=== PATIENT | female | born 1995 | race Hispanic/Latino ===

== ENCOUNTER 2017-07-28 20:16 | Emergency (ER) | payer BC, SELFPAY ==
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
[2017-07-28] MEDS ORDERED: Ketorolac Tromethamine 30 MG/ML VIAL ONE (22:11)
== END 2017-07-28 22:38 | disposition home or self-care (01) ==
LOC: ERS 20:16
DX: S40.011A Contusion of right shoulder, initial encounter (principal); V29.9XXA Motorcycle rider (driver) (passenger) injured in unspecified traffic accident, initial encounter
CPT/HCPCS: 96372; J1885

== ENCOUNTER 2018-06-17 10:23 | Emergency (ER) | payer BC ==
[2018-06-17 10:54] LABS: #Eosinphils 0.1 thou/uL (0.0-0.7); #Lymphocytes 1.5 thou/uL (1.20-3.40); #Monocytes 0.5 thou/uL (0.11-0.59); %Basophils 0.5 % (0.0-1.0); %Eosinophils 1.4 % (0.0-10.0); %Lymphocytes 20.8 % (21.0-51.0); %Monocytes 6.7 % (0.0-10.0); %Neutrophils 70.6 % (42.0-75.0); Hemoglobin 12.5 g/dL (12.0-16.0); Mean Corpuscular Hemoglobin 27.6 pg (27.0-31.0); Mean Corpuscular Volume 86.3 fL (78.0-98.0); Mean Platelet Volume 7.1 fL (7.4-10.4); Platelet Count 309 thou/uL (130-400); RBC Distribution Width 14.7 % (11.5-14.5); Red Blood Cell (RBC) Count 4.55 mill/uL (4.20-5.40); White Blood Cell (WBC) Count 7.1 thou/uL (4.8-10.8)
[2018-06-17 11:00] LABS: Bilirubin Negative (Negative); Blood, Urine Negative (Negative); Clarity TURBID (Clear); Glucose, Urine (Dipstick) Negative (Negative); Leukocyte Negative (Negative); Nitrite Negative (Negative); Protein, Urine (Dipstick) Negative (Neg-Trace); Specific Gravity, Urine 1.024 (1.002-1.036); Urobilinogen 0.2 mg/dL (0.2-1.0)
== END 2018-06-17 11:24 | disposition home or self-care (01) ==
LOC: ERS 10:23
DX: O20.9 Hemorrhage in early pregnancy, unspecified (principal); Z3A.00 Weeks of gestation of pregnancy not specified
CPT/HCPCS: 36415; 81003; 84702; 85025; 86900; 86901

== ENCOUNTER 2019-01-09 07:52 | Day surgery (SDC) | payer OTHER ==
[2019-01-09 08:36] VITALS: BMI 28.8
[2019-01-09] MEDS ORDERED: Ondansetron ODT 4 MG TAB PO ONE (08:53)
--- NOTE | 2019-01-09 09:21 | PDOC.LDHP ---
Labor and Delivery H&P Chief complaint: other (NVD) HPI: 23 yo @ 30.1 weeks presents for nausea vomiting and dirrhea that started at 2am. Pt reports she has had one episode vomiting and 8-9 soft BM. No hematemesis, no hematochezia, no dark tarry stool. No change in diet and no abdominal pain. Pos movment, no ctx, no discahrge, no bleeding, no LOF. Current gestational age (weeks): 30 (30+1) Due date: 03/19/19 Dating criteria: last menstrual period Grav: 3 Para: 1 (1011) Current complications: none Current medications: pre- vitamins Previous surgical history: none Allergies/Adverse Reactions: Allergies Allergy/AdvReac Type Severity Reaction Status Date / Time coconut Allergy Hives Verified 01/09/19 08:28 Social history: none - Physical Exam Vital signs reviewed and normal: yes General: NAD Heart: RRR Lungs: CTAB Abdomen: other (Negative Mcburneys, negative rovsing, negative Murpheys) Extremeties: no edema (140s baseline with positive accels, no contractions) FHT: category 1 - OB Labs Blood type: unknown RH: unknown Antibody Screen: unknown HIV: unknown RPR: unknown HEPSAg: unknown 1 hour GCT: unknown GBS: unknown - Plan -: 1) Gastroenteritis, likely viral - rx zofran X1 - pt currently tolerating PO w/o clinical s/s of dehydration - will DC to home with instructions to f/u in clinic and take zofran prn for NV - return precautions including high fever, severe abdominal pain discussed, pt agreeable Addendum - Attending - Attending Attestation Date/Time: 01/09/19 1608 I personally evaluated the patient and discussed the management with Dr. Osborne. I agree with the History, Examination, Assessment and Plan documented above with any addition or exceptions noted below. 23 yo @ 30.1 weeks here with onset of diarrhea and colicky abd pain this a.m. with one episode of vomiting. Currently tolerating oral water. FHT' s reassuring, no ctxn's. If Zofran and oral challenge sufficiently controls nausea to allow oral hydration, will release home with instructions.
== END 2019-01-09 09:53 | disposition home or self-care (01) ==
LOC: L&D/OP 07:52
PROVIDERS: ATTEND Obstetrics & Gynecology
DX: O99.613 Diseases of the digestive system complicating pregnancy, third trimester (principal); K52.9 Noninfective gastroenteritis and colitis, unspecified; O21.2 Late vomiting of pregnancy; Z3A.30 30 weeks gestation of pregnancy; Z91.018 Allergy to other foods
CPT/HCPCS: 99282; Q0162

== ENCOUNTER 2019-02-08 17:33 | Day surgery (SDC) | payer OTHER ==
[2019-02-08 18:12] VITALS: BMI 32.0
[2019-02-08 18:13] VITALS: BP 134/75; TEMP 100.2
[2019-02-08 19:25] LABS: Bacteria/HPF None Seen HPF (None Seen); Hyaline Casts/LPF 0-3 HYALINE CAST LPF (0-3 Hyaline); Pathc Cast-AUWi Flag 0.67 (0-2.49); RBC/HPF 0-3 HPF (0-3); Squamous Epithelial 0-3 HPF (0-3); WBC/HPF 0-3 HPF (0-3)
--- NOTE | 2019-02-08 19:34 | PDOC.FPROB ---
FMR OB H&P: HPI - History of Present Illness Chief Complaint: left sided pain Indentification: 23 History of Present Illness: 23 at 34.0 weeks here for left sided pain. Started this afternoon after cleaning toilets. Worse with breathing, but no chest pain or recent inactivity or surgery. Endorses FM. Denies LOF, VB, VD, CTX. Denies problems during . Primary Care Physician: Dr. Mason FMR OB H&P: Current - Care : 4 Para: 0121 Gestational age: 34.0 - OB Labs Blood type: unknown RH: unknown Antibody Screen: unknown HIV: unknown RPR: unknown HepBsAg: unknown Quad screen: unknown Urine drug screen: not done Gonorrhea: unknown Chlamydia: unknown GBS: unknown FMR OB H&P: Medications - Current Home Medications: Medication Instructions Recorded Confirmed Type Vitamin 1 tab PO DAILY #0 tab 08/05/13 02/08/19 Rx Allergies/Adverse Reactions: Allergies Allergy/AdvReac Type Severity Reaction Status Date / Time coconut Allergy Hives Verified 01/09/19 08:28 FMR OB H&P: ROS - Review of Systems Musculoskeletal: reports: pain (otherwise ROS negative), tenderness FMR OB H&P: Vital Signs - Maternal Vital signs: Vital Signs - First Documented Temp Pulse Resp BP 100.2 F H 86 18 134/75 02/08/19 18:09 02/08/19 18:09 02/08/19 18:09 02/08/19 18:09 FMR OB H&P: Physical Exam - Physical Exam General: NAD, awake, alert and oriented HEENT: normocephalic and atraumatic, PERRLA, EOMI, MMM Neck: supple, FROM Chest: non-tender to palpation, no lesions Heart: RRR, normal S1/S2, no murmurs/rubs/gallops General: CTAB, no respiratory distress Abdomen: soft, gravid Deviation from normal: mild TTP along left intercostal rib, negative mcburney/ rovsing Skin: capillary refill <2 seconds Lymphatic: no unusual bruising or bleeding, no purpura, no petechia FMR OB H&P: Results - Labs Lab results: Laboratory Results - last 24 hr 02/08/19 19:10 Urine RBC 0-3 Urine WBC 0-3 Ur Squamous Epith Cells 0-3 Urine Bacteria None Seen Hyaline Casts 0-3 HYALINE CAST FMR OB H&P: A/P - Problem List (1) Supervision of normal intrauterine in multigravida Status: Acute Code(s): Z34.80 - ENCOUNTER FOR SUPRVSN OF NORMAL , UNSP TRIMESTER Discussion: Date/Time: 02/08/19 193 23 yo at 34.0 here for left sided abd pain Left sided abd pain in sIUP, -Likely MSK in etiology -FHT, reactive reassuring -No CTX -No signs of labor at this time -UA with mod LE, no urinary sxs, likely dehydration -Will send urine cx, f/u on results Discussed with patient heating pads, tylenol if worsening Discussed labor precautions This H&P was discussed with Dr. Perez/ who agree with the above documentation and plan. Addendum - Attending - Attending Attestation Date/Time: 02/08/192136 I personally evaluated the patient and discussed the management with Dr. Matute I agree with the History, Examination, Assessment and Plan documented above with any addition or exceptions noted below- 23 at 34.0 weeks here for left sided pain. States that the pain started 2-3 hours ago and is intermittent. Initially was occurring every 5 minutes but now is every 10-15 minutes. States that she had a similar pain when she was dehydrated so she drank 2 bottles of water but pain continued so presented for evaluation. Denies LOF, VB. (+) FM. Denies any dysuria, fever, back pain, or h/o kidney stones. PE : Afebrile VSS SVE deferred; Category 1 FHTs; [place]- no ctx. Mild tenderness along left lateral aspect of abdomen. no CVAT. A/P: 1) Left sided abd pain- suspect musculoskeletal origin. Will check U/A and if negative plan to d/c home with precautions.
[2019-02-08 19:43] LABS: Bilirubin Negative (Negative); Blood, Urine Negative (Negative); Clarity CLEAR (Clear); Glucose, Urine (Dipstick) Negative (Negative); Leukocyte Trace (Negative); Nitrite Negative (Negative); Protein, Urine (Dipstick) Negative (Neg-Trace); Specific Gravity, Urine 1.009 (1.002-1.036); Urobilinogen 0.2 mg/dL (0.2-1.0)
--- NOTE | 2019-02-08 21:13 | PDOC.EVN ---
Event Note - Event Note Event Note: UA negative with mod LE. No urinary sxs, will send cx and f/u. Explained to patient to return if s/s labor-gave return precautions. She is feeling much better ready to go home
== END 2019-02-08 20:05 | disposition home or self-care (01) ==
LOC: L&D/OP 17:33
PROVIDERS: ATTEND Family Medicine
DX: O99.89 Other specified diseases and conditions complicating pregnancy, childbirth and the puerperium (principal); R10.9 Unspecified abdominal pain; Z3A.34 34 weeks gestation of pregnancy; Z91.018 Allergy to other foods
CPT/HCPCS: 81015; 87086; 99282

== ENCOUNTER 2019-02-25 16:37 | Day surgery (SDC) | payer OTHER ==
[2019-02-25] MEDS ORDERED: hydrALAZINE 20 MG/ML VIAL SLOW IVP PRN (16:56)
[2019-02-25 17:28] VITALS: BMI 33.1
[2019-02-25 18:03] LABS: #Eosinphils 0.1 thou/uL (0.0-0.7); #Lymphocytes 1.2 thou/uL (1.20-3.40); #Monocytes 0.5 thou/uL (0.11-0.59); #Neutrophils 6.8 thou/uL (1.40-6.50); %Basophils 0.2 % (0.0-1.0); %Eosinophils 1.7 % (0.0-10.0); %Lymphocytes 13.7 % (21.0-51.0); %Monocytes 6.3 % (0.0-10.0); %Neutrophils 78.2 % (42.0-75.0); Hemoglobin 11.1 g/dL (12.0-16.0); Mean Corpuscular HGB CONC 34.4 g/dL (32.0-36.0); Mean Corpuscular Hemoglobin 29.8 pg (27.0-31.0); Mean Corpuscular Volume 86.7 fL (78.0-98.0); Mean Platelet Volume 6.6 fL (7.4-10.4); Platelet Count 239 thou/uL (130-400); RBC Distribution Width 13.1 % (11.5-14.5); Red Blood Cell (RBC) Count 3.71 mill/uL (4.20-5.40); White Blood Cell (WBC) Count 8.7 thou/uL (4.8-10.8)
--- NOTE | 2019-02-25 18:09 | PDOC.FPROB ---
FMR OB H&P: HPI - History of Present Illness Chief Complaint: Elevated BP at clinic Indentification: 23 y/o @ 36.6 WGA by LMP c/w 11.3 wk sono History of Present Illness: Patient was seen in clinic today and had a BP of 144/83 and was sent over to L& D for pre-eclampsia rule out. Denies H/A, vision changes, N/V, abd pain, ctx, LOF, vaginal bleeding, vaginal d /c, swelling. She reported "elevated BP's" at home, but doesn't remember the numbers and didn' t write them down. Endorses good movement. Primary Care Physician: Dr. Mason - [facility] FMR OB H&P: Current - Care : 4 Para: 1021 Gestational age: 36w6d Due date: 03/19/19 Dating Criteria: LMP c/w 11w3d sono - OB Labs Blood type: A RH: positive Antibody Screen: negative HIV: negative RPR: negative HepBsAg: negative Rubella: immune Gonorrhea: negative Chlamydia: negative 1 hour gtt: 74 H&H: 12.2/36.9 FMR OB H&P: History - Past Medical History PMH: None - OB History OB History: 1 prior term 2 prior SAB's, one required d&c - PATIENT SERVICES TECHNICIAN History PATIENT SERVICES TECHNICIAN History: No hx abnormal pap smears or STI's - Surgical History Sx History: D&C - Social History Social History: Denies any tobacco, EtOH, or drug use - Family History Family History: mom - HTN, HLD FMR OB H&P: Medications - Current Home Medications: Medication Instructions Recorded Confirmed Type Vitamin 1 tab PO DAILY #0 tab 08/05/13 02/25/19 Rx Allergies/Adverse Reactions: Allergies Allergy/AdvReac Type Severity Reaction Status Date / Time coconut Allergy Hives Verified 02/25/19 17:25 FMR OB H&P: ROS - Review of Systems General: denies: fever/chills, fatigue Eyes: denies: vision changes, double vision, scotomas ENT: denies: nasal congestion, rhinorrhea, frequent nose bleed Cardiovascular: denies: chest pain, edema Respiratory: denies: cough, shortness of breath Gastrointestinal: denies: abdominal pain, nausea, vomiting Genitourinary (Female): denies: dysuria, hematuria Musculoskeletal: denies: pain, tenderness Neurologic: denies: numbness, weakness Integumentary: denies: itching, rash Hematologic/Lymphatic: denies: prolonged or excessive bleeding, enlarged lymph nodes Psychological: denies: depression, anxiety FMR OB H&P: Vital Signs - Maternal Vital signs: BP 142/82 HR 98 RR 18 O2 100% RA - Heart Tones Baseline: 120 Variability: moderate Acceleration: present Deceleration: absent Category: category 1 [place] contractions every: None FMR OB H&P: Physical Exam - Physical Exam General: NAD, awake, alert and oriented HEENT: EOMI, MMM, grossly normal vision, grossly normal hearing Neck: supple, no LAD Heart: RRR, normal S1/S2, no murmurs/rubs/gallops, pulses present, no edema General: CTAB, no respiratory distress, good air movement, no rales/rhonchi, no wheezing Abdomen: soft, gravid, non-tender Musculoskeletal: pulses present Neurological: no clonus, no focal deficit Skin: good tugor, capillary refill <2 seconds Lymphatic: no unusual bruising or bleeding, no purpura Psychiatric: intact recent and remote memory, good judgement and insight FMR OB H&P: Results - Labs Lab results: Laboratory Results - last 24 hr 02/25/19 02/25/19 02/25/19 17:34 17:34 17:44 WBC 8.7 RBC 3.71 L Hgb 11.1 L Hct 32.2 L MCV 86.7 MCH 29.8 MCHC 34.4 RDW 13.1 Plt Count 239 MPV 6.6 L Neutrophils % 78.2 H Lymphocytes % 13.7 L Monocytes % 6.3 Eosinophils % 1.7 Basophils % 0.2 Neutrophils # 6.8 H Lymphocytes # 1.2 Monocytes # 0.5 Eosinophils # 0.1 Basophils # 0.0 U Random Total Protein Less than 10 Urine Creatinine 41.05 L FMR OB H&P: A/P - Problem List (1) Elevated blood pressure affecting in third trimester, antepartum Status: Acute Code(s): O16.3 - UNSPECIFIED MATERNAL HYPERTENSION, THIRD TRIMESTER Assessment and Plan: Pt observed for elevated BP's for 3 hours. Had one elevated at 142/82, but all others WNL Platelet count, creatinine, LFT's, and uric acid WNL. < 10 urine protein. BPP 8/8, cephalic, growth measuring appropriately Will d/c pt home and have her return tomorrow with BP cuff to compare it to BP cuff on L&D Gave pre-eclampsia return precautions Continue routine f/u in clinic Disposition: d/c home and have pt return to L&D tomorrow to get BP cuff checked. Continue checking BP's at home. Discussion: Date/Time: 02/25/191806 This H&P was discussed with Dr. Logan who agrees with the above documentation and plan. Signature: Alicia Reyes MD, PGY-3 Addendum - Attending - Attending Attestation Date/Time: 02/25/192154 I personally evaluated the patient and discussed the management with Dr. Reyes I agree with the History, Examination, Assessment and Plan documented above with any addition or exceptions noted below. Patient diagnosed with gHTN based on home BP readings. Sent for evaluation. Patient will BP that were less than 140/90. Only one BP elevated to mild range after 3.5 hours of monitoring. Labs completely appropriate to GA. Asymptomatic. Patient did not have home log and has not been keeping log. BPs reported were from patient recall. No monitor available for testing against manual cuff. Due to findings from today's triage, will have patient bring BP monitor to L&D and have it checked with manual cuff. Patient ok to be d/keyona to home. Follow up with PCP on Thursday. Will have BP check tomorrow. ABrayMD
--- NOTE | 2019-02-25 18:10 | ULT ---
ULTRASOUND OBSTETRICAL COMPLETE: DATE: 02/25/2019 HISTORY: 23-year-old female high-risk FINDINGS: number: donaldson lie: Cephalic Maternal cervix: Completely obscured by shadowing from the head. Placenta: Posterior. No placenta previa. Amniotic fluid volume: ROBERT = 11cm heart rate: 130 bpm anatomy not evaluated biometry: Biparietal diameter (BPD): 9.0 cm 36 w 4 d Head circumference (HC): 32.3 cm 36 w 3 d Abdominal circumference (AC): 32.8 cm 36 w 5 d Femur length (FL): 6.9 cm 35 w 3 d Average ultrasound age (AUA): 36 w 2 d Estimated date of delivery (RAQUEL): 03/23/2019 Estimated weight (EFW): 2919 g +/- 432 g IMPRESSION: 1) Live 3rd trimester intrauterine gestation. 2) Estimated gestational age of 36 weeks, 2 days 3) cephalic lie.
--- NOTE | 2019-02-25 18:11 | ULT ---
ULTRASOUND BIOPHYSICAL PROFILE: DATE: 02/25/2019 HISTORY: 23-year-old female in third trimester , high risk. FINDINGS: breathin tone: 2 movement: 2 Amniotic fluid volume: 2 IMPRESSION: Normal biophysical profile score of 8 out of 8, excluding the nonstress test.
[2019-02-25 18:22] LABS: ALT (SGPT) 9 U/L (8-55); AST (SGOT) 11 U/L (5-34); Albumin 3.1 g/dL (3.5-5.0); Alkaline Phosphatase 103 U/L (40-150); Anion Gap 12 mmol/L (10-20); BUN (Urea Nitrogen) 6 mg/dL (7.0-18.7); Bilirubin, Total 0.3 mg/dL (0.2-1.2); Calc. Creatinine Clearance 206 mL/min (70-130); Calcium 8.9 mg/dL (7.8-10.44); Carbon Dioxide 21 mmol/L (22-29); Chloride 108 mmol/L (98-107); Estimated GFR-MDRD Greater than 90; Globulin 2.9 g/dL (2.4-3.5); Glucose 97 mg/dL (70-105); Potassium 3.6 mmol/L (3.5-5.1); Sodium 137 mmol/L (136-145); Uric Acid 2.6 mg/dL (2.6-6.0)
== END 2019-02-25 20:06 | disposition home or self-care (01) ==
LOC: L&D/OP 16:37
PROVIDERS: ATTEND Student in an Organized Health Care Education/Training Program
DX: O13.3 Gestational [pregnancy-induced] hypertension without significant proteinuria, third trimester (principal); Z87.59 Personal history of other complications of pregnancy, childbirth and the puerperium; Z3A.36 36 weeks gestation of pregnancy; Z91.018 Allergy to other foods
CPT/HCPCS: 36415; 76815; 76819; 80053; 82570; 84156; 84550; 85025; 99284

== ENCOUNTER 2019-03-10 18:00 | Inpatient (IN) | payer OTHER ==
[2019-03-10] MEDS ORDERED: Ondansetron PF 4 MG/2 ML Vial IVP PRN (19:02)
[2019-03-10] MEDS ORDERED: NS / Oxytocin 40 units/1000ml 1,000 ML IV PRN (19:02)
[2019-03-10] MEDS ORDERED: Ibuprofen 800 MG TAB PO PRN (19:02)
[2019-03-10] MEDS ORDERED: Promethazine HCl 25 MG/ML VIAL IM PRN (19:02)
[2019-03-10] MEDS ORDERED: Acetaminophen 500 MG TAB PO PRN (19:02)
[2019-03-10] MEDS ORDERED: Lidocaine 1% (PF) 30 ML VIAL SC PRN (19:02)
[2019-03-10] MEDS ORDERED: hydrALAZINE 20 MG/ML VIAL SLOW IVP PRN (19:02)
[2019-03-10] MEDS ORDERED: Butorphanol Tartrate 1 MG/ML VIAL SLOW IVP PRN (19:02)
--- NOTE | 2019-03-10 19:06 | PDOC.FPROB ---
FMR OB H&P: HPI - History of Present Illness Chief Complaint: Induction of Labor due to Gestational HTN History of Present Illness: The patient is a 23 y/o who presents to the hospital for induction of labor due to gestational HTN. The patient is 38.5W based on LMP and consistent with 11.3W US. The patient went to L&D for a Pre-Eclampsia workup on 02/25/19 due to a BP of 144/83 documented at clinic, with subsequent labs being WNL. has be uneventful otherwise, and the patient reports good movement but denies any MARIN, vision changes, N/V/D, abdominal pain, loss of fluid , contractions, vaginal discharge or swelling. Bedside US performed in L&D confirmed SIUP with vertex presentation. Primary Care Physician: Damir Mason DO FMR OB H&P: Current - Care : 4 Para: 1 Gestational age: 38.5 Due date: 03/19/19 Dating Criteria: LMP Course/Complications: Pre-eclampsia superimposed on gestational HTN. - OB Labs Blood type: A RH: positive Antibody Screen: negative HIV: negative RPR: negative HepBsAg: negative Rubella: immune Gonorrhea: negative Chlamydia: negative Pap Smear: No abnormal PAP smears 1 hour gtt: 74 GBS: negative H&H: 11. Platelets: 248 - First Trimester Ultrasound First trimester: 11.3W, CRL consistent with LMP dating - Additional Ultrasound Additional: BPP performed on 02/25/19 was 8/8. FMR OB H&P: History - Past Medical History PMH: None. - OB History OB History: Previous child delivered vaginally, at term. - [employer] History [employer] History: No history of abnormal PAP smears or STIs. - Surgical History Sx History: 1 spontaneous AB requiring D&C - Social History Social History: Denies x3 - Family History Family History: Mother (Hypertension, Hyperlipidemia) FMR OB H&P: Medications - Current Home Medications: Medication Instructions Recorded Confirmed Type Vitamin 1 tab PO DAILY #0 tab 08/05/13 03/10/19 Rx Allergies/Adverse Reactions: Allergies Allergy/AdvReac Type Severity Reaction Status Date / Time coconut Allergy Hives Verified 02/25/19 17:25 FMR OB H&P: ROS - Review of Systems Cardiovascular: denies: chest pain, palpitation Gastrointestinal: denies: abdominal pain, nausea, vomiting, diarrhea Genitourinary (Female): denies: vaginal discharge, vaginal pain, vaginal bleeding, contractions, vaginal pressure FMR OB H&P: Vital Signs - Maternal Vital signs: HR(83) BP(145/76) RR(16) O2(98 - Room) T(98.6) - Heart Tones Baseline: 145 Variability: moderate Acceleration: present Deceleration: absent Category: category 1 FMR OB H&P: Physical Exam - Physical Exam General: NAD, awake, alert and oriented HEENT: normocephalic and atraumatic, PERRLA, no scleral icterus, grossly normal vision, grossly normal hearing Neck: supple, FROM, trachea midline Chest: non-tender to palpation Heart: RRR, normal S1/S2, no murmurs/rubs/gallops General: CTAB, no respiratory distress, good air movement, no rales/rhonchi, no wheezing Abdomen: gravid, non-tender Musculoskeletal: FROM in all four extremities Neurological: no clonus, no tremor Skin: no rash Lymphatic: no unusual bruising or bleeding Psychiatric: intact recent and remote memory, good judgement and insight, normal mood and affect - Pelvic Exam Vulva: no masses, no lesions, no discharge, no blood Cervix: no masses Garcia score: 0 Membranes: Intact Presentation: Vertex FMR OB H&P: Results - Imaging Imaging: Bedside US confirmed SIUP with Vertex presentation. FMR OB H&P: A/P Disposition: 1. Induction of Labor due to Gestational HTN -38.5W based on LMP, consistent with US at 11.3W -GBS(-) -Garcia Score: 0 -Maternal BP of 145/76, all other Vitals WNL - Baseline of 145, w/o Decelerations -Cytotec Tablet placed @ 2107 on 03/10/19 -Cervical Cecks Q4H -Continue to Monitor Vital Signs -Hydralazine 10 mg PO if SBP > 160 Discussion: Date/Time: 03/10/191905 This H&P was discussed with Dr. Bishop and Dr. Strickland who agree with the above documentation and plan. 23 year old at 38.5 wks by LMP/11.3 wk sono presents for medically indicated IOL for gHTN 1. Medically indicated IOL for gHTN - BP 145/76 today - Will monitor closely for signs of pre-E - Asymptomatic at this time - Unfavorable cervix, will proceed with cytotec IOL - Bedside sono confirmed cephalic presentation 2. gHTN - See plan as above - Pre-E labs done recently and WNL Debra Bishop, DO PGY-3 Addendum - Attending - Attending Attestation Date/Time: 03/11/19 0708 I personally evaluated the patient and discussed the management with Dr. Bishop. I agree with the History, Examination, Assessment and Plan documented above with any addition or exceptions noted below.
[2019-03-10 19:57] LABS: Hemoglobin 11.4 g/dL (12.0-16.0); Mean Corpuscular HGB CONC 33.6 g/dL (32.0-36.0); Mean Corpuscular Hemoglobin 28.9 pg (27.0-31.0); Mean Corpuscular Volume 86.2 fL (78.0-98.0); Mean Platelet Volume 6.6 fL (7.4-10.4); Platelet Count 248 thou/uL (130-400); RBC Distribution Width 13.3 % (11.5-14.5); Red Blood Cell (RBC) Count 3.94 mill/uL (4.20-5.40); White Blood Cell (WBC) Count 9.5 thou/uL (4.8-10.8)
[2019-03-10 20:10] VITALS: BMI 33.5
[2019-03-10 20:38] LABS: Syphilis Antibody Nonreactive (Nonreactive); Syphilis Antibody Index 0.03 S/CO (<1.00 Non-Reactive)
[2019-03-10] MEDS ORDERED: Misoprostol 100 MCG TAB VAG SCH (20:45)
[2019-03-10] MEDS: Lactated Ringer's 1,000 ML IV SCH (21:00)
[2019-03-11] MEDS ORDERED: Fentanyl 4 mcg/Bup 0.1% Cadd 100 ML ONE ×3 (00:57→09:18)
[2019-03-11] MEDS ORDERED: NS w/ Oxytocin 10 units 500 ML ONE (00:58)
--- NOTE | 2019-03-11 01:12 | PDOC.LDPN ---
Labor & Delivery Progress Note - Subjective Subjective: comfortable - Objective Vital signs reviewed and normal: yes General: NAD, resting Uterine fundus: non tender SVE: 3/60//-2, soft, mid position by nurse at 00:19 Dilation: 3 Effacement: 50% Station: -2 FHT: category 1, variability present [place] contractions every: q2-3 min - Assessment (1) Gestational HTN Code(s): O13.9 - GESTATIONAL HTN W/O SIGNIFICANT PROTEINURIA, UNSP TRIMESTER Current Visit: Yes Status: Acute (2) Term Code(s): Z34.90 - ENCNTR FOR SUPRVSN OF NORMAL , UNSP, UNSP TRIMESTER Current Visit: Yes Status: Acute (3) Encounter for induction of labor Code(s): Z34.90 - ENCNTR FOR SUPRVSN OF NORMAL , UNSP, UNSP TRIMESTER Current Visit: Yes Status: Acute Plan: labor augmentation, pitocin for augmentation -: 23 year old at 38.5 wks by LMP/11.3 wk sono presents for medically indicated IOL. Cervical check at 00:20 3/60/-2, soft, midposition. Category I strip. Steven q2-3 minutes. Will start patient on pitocin. Patient also requesting epidural at this time. Will recheck in 2-4 hours. Debra Bishop, PGY-3 Addendum - Attending - Attending Attestation Date/Time: 03/11/19 9400 I personally evaluated the patient and discussed the management with Dr. Bishop and team. I agree with the History, Examination, Assessment and Plan documented above with any addition or exceptions noted below.
[2019-03-11] MEDS ORDERED: Lidocaine 1.5%/Epinephrine 1:200,000 5 ML AMPUL IJ ONE (01:26)
[2019-03-11] MEDS ORDERED: Ondansetron PF 4 MG/2 ML Vial IVP PRN ×2 (01:40→14:12)
[2019-03-11] MEDS ORDERED: Naloxone HCl 0.4 mg/ml Vial IVP PRN ×2 (01:40)
[2019-03-11] MEDS ORDERED: diphenhydrAMINE 50 MG/ML VIAL IVP PRN (01:40)
[2019-03-11] MEDS ORDERED: ePHEDrine/0.9% NaCl/PF SYRINGE 50 mg/10 ml SLOW IVP PRN (01:40)
[2019-03-11] MEDS ORDERED: Promethazine HCl 25 MG/ML VIAL IM PRN (01:40)
[2019-03-11] MEDS ORDERED: Acetaminophen 325 MG TAB PO PRN (01:40)
[2019-03-11] MEDS ORDERED: Lactated Ringer's 500 ML IV PRN (01:40)
[2019-03-11] MEDS ORDERED: Fentanyl 4 mcg/Bupivacaine 0.1% Cassette 100 ML EPIDURAL SCH (01:45)
[2019-03-11] MEDS ORDERED: Communication Order-Pharmacy FS SCH (01:45)
[2019-03-11 03:53] LABS: Hep B Surf Ag Non-Reactive S/CO (NonReactive)
[2019-03-11 03:54] LABS: HBSAg Index 0.29 S/CO (0-0.99)
--- NOTE | 2019-03-11 08:40 | PDOC.LDPN ---
Labor & Delivery Progress Note - Subjective Subjective: comfortable - Objective Vital signs reviewed and normal: yes General: NAD, resting Uterine fundus: non tender Dilation: 6 Effacement: 75% Station: 0 FHT: category 1, early decelerations (few), variability present [place] contractions every: 1-2min Other exam findings: SROM @ 0830 AROM: clear fluid IUPC placed: yes - Assessment (1) Encounter for induction of labor Code(s): Z34.90 - ENCNTR FOR SUPRVSN OF NORMAL , UNSP, UNSP TRIMESTER Current Visit: Yes Status: Acute (2) Term Code(s): Z34.90 - ENCNTR FOR SUPRVSN OF NORMAL , UNSP, UNSP TRIMESTER Current Visit: Yes Status: Acute Plan: continue plan of care -: 23 year old at 38.6 wks by LMP/11.3 wk sono presented for medically indicated IOL. Cervical check at 0830 6/80/0. SROM at 0830, clear fluid. Category I strip with few early decels. Steven q1-2 minutes. Patient on pit @ 12. Epidural in place. IUP placed. Will recheck in 2 hours. Continue routine labor management.
[2019-03-11] MEDS: Misoprostol 100 MCG TAB VAG SCH (10:03)
[2019-03-11] MEDS: NS w/ Oxytocin 10 units 500 ML IV SCH (10:04)
[2019-03-11] MEDS: Lactated Ringer's 1,000 ML IV SCH ×2 (10:05→10:55)
--- NOTE | 2019-03-11 10:56 | PDOC.LDPN ---
Labor & Delivery Progress Note - Subjective Subjective: comfortable (feeling pressure) - Objective Vital signs reviewed and normal: yes Uterine fundus: non tender Dilation: 7 Effacement: 25% Station: 0 FHT: category 1 (accels present, moderate variability, few early decels), early decelerations (few), variability present [place] contractions every: 1-2 min IUPC placed: yes - Assessment (1) Encounter for induction of labor Code(s): Z34.90 - ENCNTR FOR SUPRVSN OF NORMAL , UNSP, UNSP TRIMESTER Current Visit: Yes Status: Acute (2) Term Code(s): Z34.90 - ENCNTR FOR SUPRVSN OF NORMAL , UNSP, UNSP TRIMESTER Current Visit: Yes Status: Acute Plan: continue plan of care -: 23 year old at 38.6 wks by LMP/11.3 wk sono presented for medically [place] [address] 7/100/0. SROM at 0830, clear fluid. Category I strip with few early decels. Steven q1-2 minutes. Patient on pit. Epidural in place. IUP in place with adequate contractions. Will recheck in 2 hours and monitor. Continue routine labor management.
[2019-03-11] MEDS ORDERED: Lidocaine 1% (PF) 30 ML VIAL ONE (11:09)
[2019-03-11] MEDS ORDERED: NS / Oxytocin 40 units/1000ml 1,000 ML ONE (11:09)
[2019-03-11] MEDS ORDERED: hydrALAZINE 20 MG/ML VIAL SLOW IVP PRN (14:12)
[2019-03-11] MEDS ORDERED: Bisacodyl 10 MG SUPP PR PRN (14:12)
[2019-03-11] MEDS ORDERED: Milk Of Magnesia 30 ML UDCUP PO PRN (14:12)
[2019-03-11] MEDS ORDERED: Lanolin Ointment 7 GM TUBE TOP PRN (14:12)
[2019-03-11] MEDS ORDERED: NS / Oxytocin 40 units/1000ml 1,000 ML IV SCH (14:15)
--- NOTE | 2019-03-11 14:25 | PDOC.OPDEL ---
OB Operative/Delivery Note Delivery Dr/Surgeon: Tara Mason Pope Pre-Delivery Diagnosis: medically indicated induction (gHTN) Procedure/Post Delivery Dx: spontaneous vaginal delivery Weeks gestation: 38 (38.6) Anesthesia: epidural - Findings A Sex: male - 1 min: 8 - 5 min: 9 - Additional Findings/Plan Placenta delivered: spontaneous Repaired Obstetrical Laceration: episiotomy (2nd) Estimated blood loss: 425 mL Compilations/Other Findings: Pre-op Diagnosis: 1. Term intrauterine in labor 2. Gestation HTN Post-op Diagnosis: 1. Term intrauterine , delivered 2. Gestational HTN Indications: A 23y/o female presents for medically indicated induction due to gestational HTN Delivery Note: This is 23yo F @ 38.6 wks who delivered a viable M at 1338 in 03/11/19. Following an uneventful antepartum course, a vigorous (sex) was delivered PUJA position. Anterior Shoulder and then remainder of the body delivered. No nuchal cord. The head was held down and mouth and nares were bulb suctioned. Cord clamped and cut and cord blood collected. Placenta delivered intact in the [place] with a 3 vessel cord noted. Fundal massage was performed and the fundus was firm. The cervix and vagina were inspected and found to be free of lacerations other than posterior 2nd degree episiotomy. Laceration repaired with 3-0 vicryl in the usual fashion with good approximation and hemostasis. Infant went to nursery in good condition for routine care. Apgars were 8/9 at 1 & 5 minutes, respectively. Patient tolerated delivery well and went to after routine recovery/ care. Post delivery plan: routine recovery
[2019-03-11] MEDS: Ferrous Sulfate 325 MG TAB PO SCH (17:07)
[2019-03-11] MEDS ORDERED: Ibuprofen 800 MG TAB PO SCH (22:00)
[2019-03-12] MEDS: Docusate Calcium (SURFAK) 240 MG CAP PO SCH ×2 (00:02→09:41)
[2019-03-12] MEDS: Ibuprofen 800 MG TAB PO SCH ×2 (00:03→09:41)
[2019-03-12 05:45] LABS: Hemoglobin 9.7 g/dL (12.0-16.0)
--- NOTE | 2019-03-12 06:29 | PDOC.OBPPN ---
FMR OB PN: Subj - Interval History Hospital Day: 2 Day: PPD # 1 Pain well controlled, flatus, urinating without difficulty, tolerating po well. Lochia less than normal period without clots, no fevers/chills, SOB, CP, lower ext edema. Eager to go home today. Chief Complaint: s/p FMR OB PN: Obj - Maternal Vital signs: BP: 121/67 HR: 65 RR: 18 Tmax: 98.4 Pox: 98% on RA Wt: 85kg - Urine output I&O: without difficulty. multiple unmeasured voids. - Lochia Lochia: less than normal period, no clots - Pain Management Pain scale: 3 Intervention: oral medication FMR OB PN: Exam - Physical Exam General: NAD, awake, alert and oriented HEENT: MMM Neck: supple Heart: no edema Abdomen: soft, fundus(cm) (nontender, firm, U -1), non-tender Lymphatic: no unusual bruising or bleeding Psychiatric: normal mood and affect FMR OB PN: Data - Labs Lab results: Laboratory Results - last 24 hr 03/12/19 05:13 Hgb 9.7 L Hct 30.0 L FMR OB PN: A/P - Problem List (1) Encounter for induction of labor Current Visit: Yes Status: Acute Code(s): Z34.90 - ENCNTR FOR SUPRVSN OF NORMAL , UNSP, UNSP TRIMESTER (2) Term Current Visit: Yes Status: Acute Code(s): Z34.90 - ENCNTR FOR SUPRVSN OF NORMAL , UNSP, UNSP TRIMESTER Disposition: Doing well without concerns or complaints, ready for discharge this afternoon. Discussion: 23yo now 2 s/p PPD#1. 1. PPd#1 - continue routine post- care - lochia minimal, pain controlled with PO meds - ambulating well - Hb stable, will continue PO iron upon d/c - patient will follow up with [facility] next week for and check.
[2019-03-12] MEDS: NS w/ Oxytocin 10 units 500 ML IV SCH (07:28)
[2019-03-12] MEDS ORDERED: Prenatal Vitamin 1 TAB PO SCH (09:00)
[2019-03-12] MEDS: Ferrous Sulfate 325 MG TAB PO SCH (09:41)
[2019-03-12 11:33] VITALS: TEMP 99.1
[2019-03-12 15:14] VITALS: BP 120/62
== END 2019-03-12 17:05 | disposition home or self-care (01) | DRG 807 ==
LOC: L&D 18:30 → 3SW 03-11 16:49
PROVIDERS: ADMIT Family Medicine; ATTEND Family Medicine
PROC: 3E0P7VZ Introduction of Hormone into Female Reproductive, Via Natural or Artificial Opening (ICD-10-PCS; principal; 2019-03-11)
PROC: 10E0XZZ Delivery of Products of Conception, External Approach (ICD-10-PCS; 2019-03-11)
PROC: 3E033VJ Introduction of Other Hormone into Peripheral Vein, Percutaneous Approach (ICD-10-PCS; 2019-03-11)
PROC: 0W8NXZZ Division of Female Perineum, External Approach (ICD-10-PCS; 2019-03-11)
DX: O13.4 Gestational [pregnancy-induced] hypertension without significant proteinuria, complicating childbirth (principal); Z37.0 Single live birth; Z3A.38 38 weeks gestation of pregnancy
CPT/HCPCS: 36415; 51702; 85014; 85018; 85027; 86780; 86850; 86900; 86901; 87340; J2001; J2590; J3490

== ENCOUNTER 2019-10-21 07:11 | Outpatient (CLI) | payer OTHER ==
--- NOTE | 2019-10-21 08:52 | ULT ---
OB ULTRASOUND: Date: 10/21/2019 HISTORY: anatomy. FINDINGS: A single, live intrauterine gestation is seen, with measurements corresponding to an estimated gestat ional age of 21 weeks/3 days and RAQUEL at 02/28/2020. The estimated weight measures 409 gm or 14 oz (17% by Hadlock criteria). measurements are as follows: BPD: 5.20 cm, 21 weeks/6 days HC: 18.98 cm, 21 weeks/2 days. AC: 15.99 cm, 21 weeks/1 day FL: 3.58 cm, 21 weeks/3 days heart rate measures 140 beats/minute. Placenta is anteriorly located without evidence of placenta previa. ROBERT measures 13.4 cm. Cervical length is 3.3 cm. A 3 vessel cord, cord insertion, kidneys, bladder, stomach, 4 chamber heart, lateral ventricles , cerebellum, spine, lips/nose, and upper/lower extremities are visualized. No definite anomali es are seen. IMPRESSION: Single, live intrauterine of 21 weeks3 days estimated gestational age and RAQUEL at 02/28/2020 . POS: OFF
== END 2019-10-21 07:12 | disposition home or self-care (01) ==
LOC: BICULT 07:11
PROVIDERS: ATTEND Family Medicine
DX: O09.92 Supervision of high risk pregnancy, unspecified, second trimester (principal); Z3A.21 21 weeks gestation of pregnancy
CPT/HCPCS: 76805

== ENCOUNTER 2020-02-04 18:00 | Inpatient (IN) | payer OTHER ==
[2020-02-04 18:48] VITALS: BMI 34.9
[2020-02-04] MEDS: Lactated Ringer's 1,000 ML IV SCH (19:00)
[2020-02-04] MEDS ORDERED: Promethazine HCl 25 MG/ML VIAL IM PRN (20:47)
[2020-02-04] MEDS ORDERED: Ibuprofen 800 MG TAB PO PRN (20:47)
[2020-02-04] MEDS ORDERED: Carboprost 250 MCG/ML AMP IM PRN (20:47)
[2020-02-04] MEDS ORDERED: Ondansetron PF 4 MG/2 ML Vial IVP PRN (20:47)
[2020-02-04] MEDS ORDERED: Methylergonovine 0.2 MG/ML VIAL IM PRN (20:47)
[2020-02-04] MEDS ORDERED: Lidocaine 1% (PF) 30 ML VIAL SC PRN (20:47)
[2020-02-04] MEDS ORDERED: NS / Oxytocin 40 units/1000ml 1,000 ML IV PRN (20:47)
[2020-02-04] MEDS ORDERED: Misoprostol 200 MCG TAB PR PRN (20:47)
[2020-02-04] MEDS ORDERED: hydrALAZINE 20 MG/ML VIAL SLOW IVP PRN (20:47)
[2020-02-04] MEDS ORDERED: Butorphanol Tartrate 1 MG/ML VIAL SLOW IVP PRN (20:47)
[2020-02-04] MEDS ORDERED: Acetaminophen 500 MG TAB PO PRN (20:47)
[2020-02-04] MEDS ORDERED: Penicillin G Potassium 5 MILL.UNITS in Sodium Chloride 0.9% 100 ML IVPB SCH (21:00)
[2020-02-04] MEDS: Misoprostol 100 MCG TAB VAG SCH (21:02)
--- NOTE | 2020-02-04 21:07 | PDOC.FPROB ---
FMR OB H&P: HPI - History of Present Illness Chief Complaint: mIOL for gHTN Indentification: 24yo @ 37.0wk by LMP c/w 21.6wk sono History of Present Illness: 24yo @ 37.0wk by LMP c/w 21.6wk jade presents for mIOL for gHTN. She currently denies any contractions, no MARIN, vision changes, RUQ pain, SOB, or LE edema. Denies LOF, vaginal bleeding or change in vaginal discharge. She has no concerns at this time. Primary Care Physician: AKIL Coleman/Eleno FMR OB H&P: Current - Care : 5 Para: 2021 Gestational age: 37.0 Due date: 02/25/20 Dating Criteria: lmp c/w 21.6wk sono Course/Complications: short interval, incomplete care - OB Labs Blood type: A RH: positive Antibody Screen: negative HIV: negative RPR: negative HepBsAg: negative Rubella: immune Pap Smear: NILM 08/2019 GBS: positive H&H: 11.5 Platelets: 247 Additional labs: COVID negative - Additional Ultrasound Additional: Hadlock 46.8% @ 32.8wk FMR OB H&P: History - Past Medical History PMH: None - OB History OB History: Pre-E x2, short IPI, spontaneous AB x2 - DEWER History DEWER History: NILM Pap most recent - Surgical History Sx History: D&C - Social History Social History: Denies EtOH, Tob, Illicits - Family History Family History: Dm, HTN FMR OB H&P: Medications - Current Home Medications: Medication Instructions Recorded Confirmed Type Vitamin 1 tab PO DAILY #0 tab 08/05/13 02/04/20 Rx Allergies/Adverse Reactions: Allergies Allergy/AdvReac Type Severity Reaction Status Date / Time coconut Allergy Hives Verified 02/04/20 18:37 FMR OB H&P: ROS - Review of Systems General: denies: fever/chills, weight/appetite/sleep changes, night sweats, fatigue Eyes: denies: vision changes, double vision, scotomas ENT: denies: nasal congestion, rhinorrhea, sore throat Cardiovascular: denies: chest pain, palpitation, edema Respiratory: denies: cough, congestion, shortness of breath Gastrointestinal: denies: abdominal pain, cramping, nausea, vomiting, diarrhea, constipation Genitourinary (Female): denies: incontinence, dysuria, hematuria, vaginal discharge, vaginal bleeding, contractions Musculoskeletal: denies: pain, stiffness Neurologic: denies: headache Integumentary: denies: rash FMR OB H&P: Vital Signs - Maternal Vital signs: Vital Signs - First Documented Temp Pulse Resp BP Pulse Ox 98.5 F 103 H 16 143/83 H 100 02/04/20 18:34 02/04/20 18:34 02/04/20 18:34 02/04/20 18:34 02/04/20 18:34 - Heart Tones Baseline: 140 Variability: moderate Acceleration: present Deceleration: absent Category: category 1 [place] contractions every: none FMR OB H&P: Physical Exam - Physical Exam General: NAD, awake, alert and oriented HEENT: normocephalic and atraumatic, PERRLA, EOMI, MMM, conjunctiva clear, no scleral icterus, grossly normal vision, grossly normal hearing, oropharynx clear Neck: supple, trachea midline Heart: RRR, normal S1/S2, no murmurs/rubs/gallops, pulses present, no edema General: CTAB, no respiratory distress, good air movement, no rales/rhonchi, no wheezing Abdomen: soft, gravid, non-tender, bowel sound present Musculoskeletal: FROM in all four extremities Neurological: no focal deficit Skin: no rash Psychiatric: intact recent and remote memory, good judgement and insight, normal mood and affect - Pelvic Exam Vulva: normal hair distribution, no lesions, no discharge, no blood SVE: 1/thick/high Presentation: cephalic FMR OB H&P: A/P - Problem List (1) Term Current Visit: Yes Status: Acute Code(s): Z34.90 - ENCNTR FOR SUPRVSN OF NORMAL , UNSP, UNSP TRIMESTER (2) Gestational HTN Current Visit: Yes Status: Acute Code(s): O13.9 - GESTATIONAL HTN W/O SIGNIFICANT PROTEINURIA, UNSP TRIMESTER Disposition: 24yo @ 37.0wk by LMP c/w 21.6wk sono presents for mIOL for gHTN #SIUP @ 37.0wk - mIOL for gHTN - Reactive FHT - accels, no deccels, baseline 140, no contractions - SVE 1/thick/high @ 2100 - cytotec placed - will cont to monitor, recheck in 3hours and consider placing additional cytotec #gHTN - BP 143/83 and 139/85 at presentation, no symptoms of severe features - will cont to monitor and trend - h/o PreE with previous pregnancies, however PIH labs negative this #GBS positive - GBS bacteruria during - will start PNC once Pit is started #Short IPI - <12 months, monitor PCP: PNC - Jared/Eleno Dispo: Admit and begin mIOL for gHTN with cytotec. Discussion: Date/Time: 02/04/202106 This H&P was discussed with Dr. Zavala and Dr. Strickland who agree with the above documentation and plan. Addendum - Attending - Attending Attestation Date/Time: 02/04/202140 I personally evaluated the patient and discussed the management with the team. I agree with the History, Examination, Assessment and Plan documented above with any addition or exceptions noted below. Medically indicated induction for gHTN @ 37w0d by LMP c/w 21w6d sono. Please note that I called Dr. Logan to confirm dating from PNC records. Cat 1, exam as above. Begin cervical ripening. PCN with pitocin. Anticipate .
[2020-02-04 21:25] LABS: Hemoglobin 12.1 g/dL (12.0-16.0); Mean Corpuscular HGB CONC 33.6 g/dL (32.0-36.0); Mean Corpuscular Hemoglobin 29.1 pg (27.0-31.0); Mean Corpuscular Volume 86.7 fL (78.0-98.0); Mean Platelet Volume 7.2 fL (7.4-10.4); Platelet Count 281 thou/uL (130-400); RBC Distribution Width 12.9 % (11.5-14.5); Red Blood Cell (RBC) Count 4.15 mill/uL (4.20-5.40); White Blood Cell (WBC) Count 12.1 thou/uL (4.8-10.8)
[2020-02-04 22:02] LABS: Syphilis Antibody Nonreactive (Nonreactive); Syphilis Antibody Index 0.02 S/CO (<1.00 Non-Reactive)
[2020-02-04 22:22] LABS: ALT (SGPT) 9 U/L (8-55); AST (SGOT) 19 U/L (5-34); Albumin 3.1 g/dL (3.5-5.0); Alkaline Phosphatase 149 U/L (40-110); Anion Gap 16 mmol/L (10-20); BUN (Urea Nitrogen) 7 mg/dL (7.0-18.7); Bilirubin, Total 0.2 mg/dL (0.2-1.2); Calc. Creatinine Clearance 185 mL/min (70-130); Calcium 8.2 mg/dL (7.8-10.44); Carbon Dioxide 17 mmol/L (22-29); Chloride 107 mmol/L (98-107); Estimated GFR-MDRD Greater than 90; Glucose 113 mg/dL (70-105); Potassium 3.6 mmol/L (3.5-5.1); Protein, Total 6.1 g/dL (6.0-8.3); Sodium 136 mmol/L (136-145)
[2020-02-04 22:31] LABS: HBSAg Index 0.17 S/CO (0-0.99); Hep B Surf Ag Non-Reactive S/CO (NonReactive)
--- NOTE | 2020-02-05 01:07 | PDOC.LDPN ---
Labor & Delivery Progress Note - Subjective Subjective: comfortable, painful contractions (about every 5-10min per patient) , no concerns - Objective Vital signs reviewed and normal: yes (BP 129/63 -> 141/61) General: NAD, resting, breathing through contractions Uterine fundus: non tender SVE: 3/50/-2 FHT: category 1 (accels, no deccels, baseline 130) [place] contractions every: initially q3-4hrs with cytotec, now spaced out and intermittent - Assessment (1) Term Code(s): Z34.90 - ENCNTR FOR SUPRVSN OF NORMAL , UNSP, UNSP TRIMESTER Current Visit: Yes Status: Acute (2) Gestational HTN Code(s): O13.9 - GESTATIONAL HTN W/O SIGNIFICANT PROTEINURIA, UNSP TRIMESTER Current Visit: Yes Status: Acute Qualifiers: Trimester: third trimester Qualified Code(s): O13.3 - Gestational [ -induced] hypertension without significant proteinuria, third trimester Plan: continue plan of care, pitocin for augmentation -: 24yo @ 37.1wk by LMP c/w 21.6wk sono presents for mIOL for gHTN #SIUP @ 37.1wk - mIOL for gHTN - Reactive FHT - accels, no deccels, baseline 130, contractions initial q3-4min regularly after cytotec, now they have spaced out and are intermittent - SVE 1/thick/high @ 2100 - cytotec placed - SVE 3/50/-2, mid-position, soft. Garcia 7 - will start pit - desires epidural, will place prior to starting pit #gHTN - BP 130s/80s, no symptoms of severe features - will cont to monitor and trend - h/o PreE with previous pregnancies, however PIH labs negative this #GBS positive - GBS bacteruria during - begin PNC prior to starting pit #Short IPI - <12 months, monitor PCP: PNC - Jared/Eleno Dispo: Cont mIOL for gHTN, will place epidural, starting PNC, then start pit, recheck q2hrs once on pit Addendum - Attending - Attending Attestation Date/Time: 02/05/20 4960 I personally evaluated the patient and discussed the management with Dr. Aryan. I agree with the History, Examination, Assessment and Plan documented above with any addition or exceptions noted below.
[2020-02-05] MEDS ORDERED: Fentanyl 4 mcg/Bup 0.1% Cadd 100 ML ONE (01:22)
[2020-02-05] MEDS: Lactated Ringer's 1,000 ML IV SCH (01:33)
[2020-02-05] MEDS: Misoprostol 100 MCG TAB VAG SCH ×3 (01:35→15:47)
[2020-02-05] MEDS ORDERED: diphenhydrAMINE 50 MG/ML VIAL IVP PRN (01:56)
[2020-02-05] MEDS ORDERED: Promethazine HCl 25 MG/ML VIAL IM PRN (01:56)
[2020-02-05] MEDS ORDERED: Ondansetron PF 4 MG/2 ML Vial IVP PRN (01:56)
[2020-02-05] MEDS ORDERED: EPHEDRINE 25 MG/5 ML SYRINGE SLOW IVP PRN (01:56)
[2020-02-05] MEDS ORDERED: Acetaminophen 325 MG TAB PO PRN (01:56)
[2020-02-05] MEDS ORDERED: Lactated Ringer's 500 ML IV PRN (01:56)
[2020-02-05] MEDS ORDERED: Naloxone HCl 0.4 mg/ml Vial IVP PRN ×2 (01:56)
[2020-02-05] MEDS ORDERED: Communication Order-Pharmacy FS SCH (02:00)
[2020-02-05] MEDS ORDERED: Fentanyl 4 mcg/Bupivacaine 0.1% Cassette 100 ML EPIDURAL SCH (02:00)
[2020-02-05] MEDS ORDERED: NS w/ Oxytocin 10 units 500 ML IV SCH ×2 (02:30)
--- NOTE | 2020-02-05 04:24 | PDOC.LDPN ---
Labor & Delivery Progress Note - Subjective Subjective: comfortable, no concerns - Objective Vital signs reviewed and normal: yes (BP 114/61 - 124/65) General: NAD, resting Uterine fundus: non tender SVE: 4/50/-2 FHT: category 1 (accels, no deccels, baseline 120) [place] contractions every: q3-4min - Assessment (1) Term Code(s): Z34.90 - ENCNTR FOR SUPRVSN OF NORMAL , UNSP, UNSP TRIMESTER Current Visit: Yes Status: Acute (2) Gestational HTN Code(s): O13.9 - GESTATIONAL HTN W/O SIGNIFICANT PROTEINURIA, UNSP TRIMESTER Current Visit: Yes Status: Acute Qualifiers: Trimester: third trimester Qualified Code(s): O13.3 - Gestational [ -induced] hypertension without significant proteinuria, third trimester Plan: continue plan of care, pitocin for augmentation -: 24yo @ 37.1wk by LMP c/w 21.6wk sono presents for mIOL for gHTN #SIUP @ 37.1wk - mIOL for gHTN - Reactive FHT - accels, no deccels, baseline 120, contractions q3-4min on pit - SVE 1/thick/high @ 2100 - cytotec placed - SVE 3/50/-2, mid-position, soft @ 0100. Garcia 7 - epidural placed, PNC started, pit started - SVE 4/50/-2 @ 0300 - on pit - cont to monitor q2hr #gHTN - BP 110s-120s/60s, no symptoms of severe features - will cont to monitor and trend - h/o PreE with previous pregnancies, however PIH labs negative this #GBS positive - GBS bacteruria during - Cont PNC #Short IPI - <12 months, monitor PCP: PNC - Jared/Eleno Dispo: Cont mIOL for gHTN, epidural placed, PNC started, on pit, cont monitoring with q2hr checks. Addendum - Attending - Attending Attestation Date/Time: 02/05/20 9882 I discussed the management with Dr. Leal and Lucas. I agree with the History, Examination, Assessment and Plan documented above with any addition or exceptions noted below.
[2020-02-05] MEDS: Penicillin G 2.5 MILL.units 2.5 MILL.UNITS in Premix Bag 1 BAG IVPB SCH ×2 (05:29→15:47)
--- NOTE | 2020-02-05 06:16 | PDOC.LDPN ---
Labor & Delivery Progress Note - Subjective Subjective: comfortable, no concerns - Objective Vital signs reviewed and normal: yes (BP 99/51 - 109/58) General: NAD, resting Uterine fundus: non tender SVE: 6/80/-2 FHT: category 1 (accels, no deccels, baseline 130) [place] contractions every: unable to brain picker on toco - Assessment (1) Term Code(s): Z34.90 - ENCNTR FOR SUPRVSN OF NORMAL , UNSP, UNSP TRIMESTER Current Visit: Yes Status: Acute (2) Gestational HTN Code(s): O13.9 - GESTATIONAL HTN W/O SIGNIFICANT PROTEINURIA, UNSP TRIMESTER Current Visit: Yes Status: Acute Qualifiers: Trimester: third trimester Qualified Code(s): O13.3 - Gestational [ -induced] hypertension without significant proteinuria, third trimester Plan: continue plan of care, pitocin for augmentation -: 24yo @ 37.1wk by LMP c/w 21.6wk sono presents for mIOL for gHTN #SIUP @ 37.1wk - mIOL for gHTN - Reactive FHT - accels, no deccels, baseline 120, contractions q3-4min on pit - SVE 1/thick/high @ 2100 - cytotec placed - SVE 3/50/-2, mid-position, soft @ 0100. Garcia 7 - epidural placed, PNC started, pit started - SVE 4/50/-2 @ 0300 - on pit - SVE 6/80/-2 @ 0600 - on pit - cont to monitor q2hr #gHTN - BP 90s-110s/50s, no symptoms of severe features - will cont to monitor and trend - h/o PreE with previous pregnancies, however PIH labs negative this #GBS positive - GBS bacteruria during - Cont PNC #Short IPI - <12 months, monitor PCP: PNC - Jared/Eleno Dispo: Cont mIOL for gHTN, epidural placed, PNC started, on pit, cont monitoring with q2hr checks.
[2020-02-05] MEDS ORDERED: Lidocaine 1% (PF) 30 ML VIAL ONE (08:26)
[2020-02-05] MEDS ORDERED: NS / Oxytocin 40 units/1000ml 1,000 ML ONE (08:26)
[2020-02-05] MEDS ORDERED: diphenhydrAMINE 25 MG CAP PO PRN (09:02)
[2020-02-05] MEDS ORDERED: Benzocaine-Menthol 82.5 ML CAN TOP PRN (09:02)
[2020-02-05] MEDS ORDERED: Milk Of Magnesia 30 ML UDCUP PO PRN (09:02)
[2020-02-05] MEDS ORDERED: hydrALAZINE 20 MG/ML VIAL SLOW IVP PRN (09:02)
[2020-02-05] MEDS ORDERED: Preparation H Ointment 28 GM TUBE PR PRN (09:02)
[2020-02-05] MEDS ORDERED: Adacel (T-DAP) 0.5 ML SYRINGE IM ONE (09:02)
[2020-02-05] MEDS ORDERED: Bisacodyl 10 MG SUPP PR PRN (09:02)
--- NOTE | 2020-02-05 09:03 | PDOC.OBLPN ---
Addendum entered and electronically signed by Keisha Coleman MD 02/05/20 09:13 : Original Note: FMR OB Labor PN: Subj - Interval History Hospital Day: 2 Chief Complaint: bakc & neck pain from epidural Indentification: Interval History: Difficulty detecting contraction pattern &/or FHTs. FMR OB Labor PN: Obj - Maternal Vital signs: BP: 135/95 HR: 76 - Procedures AROM: clear fluid Resuscitative measures: maternal IV fluids FMR OB Labor PN: Exam - Physical Exam General: awake, alert and oriented, other (moderate distress 2/2 pain from epidural) HEENT: MMM, grossly normal vision, grossly normal hearing Neck: supple, FROM General: no respiratory distress Abdomen: gravid Neurological: cranial nerves II through XII intact, no focal deficit Skin: no rash, good tugor Lymphatic: no unusual bruising or bleeding, no purpura, no petechia Psychiatric: intact recent and remote memory, good judgement and insight, normal mood and affect - Pelvic Exam Vulva: normal hair distribution, appropriate azeem stage, no masses, no lesions SVE: 10/100/0 Membranes: intact Presentation: cephalic FMR OB Labor PN: Data - Labs Lab results: Laboratory Results - last 24 hr 02/04/20 02/04/20 02/04/20 21:00 21:07 21:07 WBC RBC Hgb Hct MCV MCH MCHC RDW Plt Count MPV Sodium 136 Potassium 3.6 Chloride 107 Carbon Dioxide 17 L Anion Gap 16 BUN 7 Creatinine 0.64 Estimated GFR (MDRD) Greater than 90 Glucose 113 H Calcium 8.2 Total Bilirubin 0.2 AST 19 ALT 9 Alkaline Phosphatase 149 H Serum Total Protein 6.1 Albumin 3.1 L Globulin 3.0 Albumin/Globulin Ratio 1.0 L Syphilis IgG/IgM Ab Nonreactive Hep Bs Antigen Non-Reactive Blood Type Antibody Screen 02/04/20 02/04/20 21:07 21:07 WBC 12.1 H RBC 4.15 L Hgb 12.1 Hct 36.0 MCV 86.7 MCH 29.1 MCHC 33.6 RDW 12.9 Plt Count 281 MPV 7.2 L Sodium Potassium Chloride Carbon Dioxide Anion Gap BUN Creatinine Estimated GFR (MDRD) Glucose Calcium Total Bilirubin AST ALT Alkaline Phosphatase Serum Total Protein Albumin Globulin Albumin/Globulin Ratio Syphilis IgG/IgM Ab Hep Bs Antigen Blood Type A POSITIVE Antibody Screen NEGATIVE FMR OB Labor PN: A/P - Problem List (1) Gestational HTN Current Visit: Yes Status: Acute Code(s): O13.9 - GESTATIONAL HTN W/O SIGNIFICANT PROTEINURIA, UNSP TRIMESTER Qualifiers: Trimester: third trimester Qualified Code(s): O13.3 - Gestational [ -induced] hypertension without significant proteinuria, third trimester (2) Term Current Visit: Yes Status: Acute Code(s): Z34.90 - ENCNTR FOR SUPRVSN OF NORMAL , UNSP, UNSP TRIMESTER (3) GBS (group B Streptococcus carrier), +RV culture, currently Current Visit: Yes Status: Acute Code(s): O99.820 - STREPTOCOCCUS B CARRIER STATE COMPLICATING (4) Short interval between pregnancies affecting in third trimester, antepartum Current Visit: Yes Status: Acute Code(s): O09.893 - SUPERVISION OF OTHER HIGH RISK PREGNANCIES, THIRD TRIMESTER Disposition: 24yo @ 37.1wk by LMP c/w 21.6wk sono presents for mIOL for gHTN #SIUP @ 37.1wk - mIOL for gHTN - Reactive FHTs & contractions difficult to detect w/ external monitors. Patient very uncomfortable from epidural & can only lay on side to get comfortable. - SVE 1/thick/high @ 2100 - cytotec placed - SVE 3/50/-2, mid-position, soft @ 0100. Garcia 7 - epidural placed, PNC started, pit started - SVE 4/50/-2 @ 0300 - on pit - SVE 6/80/-2 @ 0600 - on pit - SVE 10/100/0 @ 0185 - on pit, will AROM & proceed with delivery #gHTN - BP 90s-150s/50s-90s, no symptoms of severe features - will cont to monitor - h/o PreE with previous pregnancies, however PIH labs negative this #GBS positive - GBS bacteruria during - s/p Pen G x2, adequately treated #Short IPI - <12 months since last PCP: PNC - Jared/Eleno Dispo: Proceed with delivery. Discussion: Date/Time: 02/05/20 0902 This H&P was discussed with Dr. Linares who agrees with the above documentation and plan. Addendum - Attending - Attending Attestation Date/Time: 02/05/20 0780 I personally evaluated the patient and discussed the management with Dr. Coleman. I agree with the History, Examination, Assessment and Plan documented above with any addition or exceptions noted below.
--- NOTE | 2020-02-05 09:09 | PDOC.OPDEL ---
OB Operative/Delivery Note Delivery Dr/Surgeon: Mounika/Vijay Pre-Delivery Diagnosis: active labor, medically indicated induction (for gHTN) Procedure/Post Delivery Dx: spontaneous vaginal delivery Weeks gestation: 37 (37.1) Anesthesia: epidural - Findings A Sex: female - 1 min: 8 - 5 min: 9 - Additional Findings/Plan Placenta delivered: spontaneous Repaired Obstetrical Laceration: other (very small, hemostatic cervical laceration at 5'oclock, not requiring repair) Estimated blood loss: 60 Compilations/Other Findings: Delivery Physicians: Mounika Attending: Vijay Procedure: Spontaneous Vaginal Delivery Anesthesia: Epidural QBL: 60cc Pre-Op Diagnosis: 1. Term intrauterine in labor 2. medically indicated induction of labor for gHTN 3. GBS positive with adequate tx 4. short inter- interval Post-Op Diagnosis: 1. Term intrauterine , delivered 2. same as above Indications: A 24yo @ 37.1 presented for medically-indicated induction of labor for gHTN. Delivery Note: This is a 24yo @ 37.1wk by LMP c/w 21.6wk sono who delivered a viable Female at 0838 on 02/05/20. Following an uneventful antepartum course, a vigorous female was delivered over an intact perineum in the occipitanterior position. Anterior shoulder and then remained of the body delivered. Nuchal cord x1, delivered through and reduced. The head was held down and mouth and nares were bulb suctioned. Cord clamped after delayed cord clamping and cut and cord blood collected. Placenta delivered in the [place] presentation with a 3 vessel cord noted and intact. Placenta was sent for pathology due to gHTN. Fundal massage was performed and the fundus was found to be firm. The cervix and vagina were inspected and a very small cervical laceration at 5 o'clock was noted to be hemostatic and not requiring repair. The remainder of the cervix and vagina were found to be free of lacerations. was then placed on mom for [id number] time and then nursery for routine care. Apgars were 8 and 9 at 1 & 5 minutes respectively. Patient tolerated delivery well and went to after routine recovery/care. Post delivery plan: routine recovery
[2020-02-05] MEDS ORDERED: NS / Oxytocin 40 units/1000ml 1,000 ML IV SCH (09:15)
[2020-02-05] MEDS ORDERED: Acetaminophen 500 MG TAB PO PRN (10:42)
[2020-02-05] MEDS: Ibuprofen 800 MG TAB PO SCH ×2 (13:47→22:19)
[2020-02-06 05:13] VITALS: TEMP 97.9
--- NOTE | 2020-02-06 05:26 | PDOC.PP ---
Post Progress Note Post Day #: 1 Subjective: Doing well, no concerns, slept well overnight. Ambulating, voiding without difficulty, tolerating PO well without n/v, pain well-controlled with motrin, lochia decreased. No BM yet. going well. Plans for depo for contraception. Eager for discharge today. PO intake tolerated: yes Flatus: no Ambulation: yes Vital Signs (12 hours) Temp Pulse Resp BP Pulse Ox 02/06/20 04:30 97.9 F 77 16 133/91 H 02/06/20 00:06 98.1 F 56 L 16 127/60 97 02/05/20 20:55 98.3 F 69 18 129/61 97 Weight Weight 86.636 kg - Physical Examination General: NAD (resting comfortably) Cardiovascular: no m/r/g, RRR Respiratory: clear to auscultation bilaterally, non-labored breathing Abdominal: + bowel sounds, no distention, appropriately TTP Fundus firm & at: below umbilicus Extremities: negative homans (B) (no edema) Neurological: no gross focal deficits Psychiatric: A&Ox3, normal affect Result Diagrams: 02/04/20 21:07 02/04/20 21:00 Additional Labs: Post Labs Blood Type A POSITIVE 02/04/20 21:07 Hep Bs Antigen Non-Reactive S/CO (NonReactive) 02/04/20 21:07 (1) Term Code(s): Z34.90 - ENCNTR FOR SUPRVSN OF NORMAL , UNSP, UNSP TRIMESTER Status: Acute (2) Gestational HTN Code(s): O13.9 - GESTATIONAL HTN W/O SIGNIFICANT PROTEINURIA, UNSP TRIMESTER Status: Acute Qualifiers: Trimester: third trimester Qualified Code(s): O13.3 - Gestational [ -induced] hypertension without significant proteinuria, third trimester - Assessment/Plan 24yo @ 37.1wk by LMP c/w 21.6wk jade presented for mIOL for gHTN now s/ p PPD#1 #S/p PPD#1 - mIOL for gHTN - QBL 60 - small, hemostatic cervical lac at 5 o'clock, not requiring repair - Ambulating, voiding, tolerating PO, lochia decreased, eager for discharge - motrin for pain - routine care #gHTN - BPs improved since delivery with only 1 elevated BP >140/90 #GBS positive - adequately treated #Short IPI - <12 months, monitor - desires Depo for contraception PCP: PN - [facility] Dispo: PPD#1 s/p . Doing well without concerns. Anticipate discharge today pending baby/mom clinical course. Addendum - Attending - Attending Attestation Date/Time: 02/06/20 6781 I personally evaluated the patient and discussed the management with Dr. Leal. I agree with the History, Examination, Assessment and Plan documented above with any addition or exceptions noted below. BP outside severe range. d/c if baby clear for d/c this afternoon. F[facility]u later this week at [facility]. Has home monitoring and instructed to continue monitoring.
[2020-02-06] MEDS: Ibuprofen 800 MG TAB PO SCH ×2 (06:01→14:16)
[2020-02-06 08:52] VITALS: BP 142/79
[2020-02-06] MEDS ORDERED: Prenatal Vitamin 1 TAB PO SCH (09:00)
== END 2020-02-06 15:00 | disposition home or self-care (01) | DRG 807 ==
LOC: L&D 18:04 → 3SW 02-05 15:11
PROVIDERS: ADMIT Family Medicine; ATTEND Family Medicine
PROC: 10E0XZZ Delivery of Products of Conception, External Approach (ICD-10-PCS; principal; 2020-02-04)
PROC: 10907ZC Drainage of Amniotic Fluid, Therapeutic from Products of Conception, Via Natural or Artificial Opening (ICD-10-PCS; 2020-02-04)
PROC: 3E033VJ Introduction of Other Hormone into Peripheral Vein, Percutaneous Approach (ICD-10-PCS; 2020-02-04)
PROC: 3E0P7VZ Introduction of Hormone into Female Reproductive, Via Natural or Artificial Opening (ICD-10-PCS; 2020-02-04)
DX: O13.4 Gestational [pregnancy-induced] hypertension without significant proteinuria, complicating childbirth (principal); Z37.0 Single live birth; O99.824 Streptococcus B carrier state complicating childbirth; O71.3 Obstetric laceration of cervix; Z3A.37 37 weeks gestation of pregnancy
CPT/HCPCS: 36415; 51702; 80053; 85027; 86780; 86850; 86900; 86901; 87340; 88307; J2001; J2405; J2540; J2590; J3490

== ENCOUNTER 2020-02-07 08:40 | Day surgery (SDC) | payer OTHER ==
[2020-02-07] MEDS ORDERED: diphenhydrAMINE 50 MG/ML VIAL ONE (09:16)
[2020-02-07] MEDS ORDERED: Metoclopramide HCl 10 MG/2 ML VIAL ONE (09:16)
[2020-02-07] MEDS ORDERED: Fentanyl 100 MCG/2 ML VIAL ONE (12:24)
[2020-02-07] MEDS ORDERED: Sodium Chloride 0.9% 10 ML ONE (12:25)
== END 2020-02-07 13:17 | disposition home or self-care (01) ==
LOC: ERS 08:40 → SDC 12:10
PROVIDERS: ATTEND Surgery
PROC: 3E0S3GC Introduction of Other Therapeutic Substance into Epidural Space, Percutaneous Approach (ICD-10-PCS; principal; 2020-02-07)
DX: G97.1 Other reaction to spinal and lumbar puncture (principal); Z91.018 Allergy to other foods
CPT/HCPCS: 62272; J1200; J2765; J3010

== ENCOUNTER 2020-02-09 14:31 | Emergency (ER) | payer OTHER ==
[2020-02-09] MEDS ORDERED: diphenhydrAMINE 50 MG/ML VIAL ONE (16:50)
[2020-02-09] MEDS ORDERED: Metoclopramide HCl 10 MG/2 ML VIAL ONE (16:50)
[2020-02-09 16:57] LABS: #Monocytes 0.2 thou/uL (0.11-0.59); #Neutrophils 9.1 thou/uL (1.40-6.50); %Basophils 0.1 % (0.0-1.0); %Eosinophils 0.4 % (0.0-10.0); %Lymphocytes 9.5 % (21.0-51.0); %Monocytes 1.6 % (0.0-10.0); %Neutrophils 88.4 % (42.0-75.0); Hemoglobin 12.8 g/dL (12.0-16.0); Mean Corpuscular HGB CONC 33.8 g/dL (32.0-36.0); Mean Corpuscular Hemoglobin 29.2 pg (27.0-31.0); Mean Corpuscular Volume 86.4 fL (78.0-98.0); Mean Platelet Volume 6.3 fL (7.4-10.4); Platelet Count 291 thou/uL (130-400); RBC Distribution Width 12.9 % (11.5-14.5); Red Blood Cell (RBC) Count 4.37 mill/uL (4.20-5.40); White Blood Cell (WBC) Count 10.3 thou/uL (4.8-10.8)
[2020-02-09 17:17] LABS: ALT (SGPT) 20 U/L (8-55); AST (SGOT) 17 U/L (5-34); Albumin 3.4 g/dL (3.5-5.0); Alkaline Phosphatase 114 U/L (40-110); Anion Gap 12 mmol/L (10-20); BUN (Urea Nitrogen) 7 mg/dL (7.0-18.7); Bilirubin, Total 0.4 mg/dL (0.2-1.2); Calc. Creatinine Clearance 0 mL/min (70-130); Calcium 8.6 mg/dL (7.8-10.44); Carbon Dioxide 24 mmol/L (22-29); Chloride 108 mmol/L (98-107); Estimated GFR-MDRD Greater than 90; Globulin 3.3 g/dL (2.4-3.5); Glucose 96 mg/dL (70-105); Potassium 3.6 mmol/L (3.5-5.1); Protein, Total 6.7 g/dL (6.0-8.3); Sodium 140 mmol/L (136-145)
== END 2020-02-09 19:40 | disposition home or self-care (01) ==
LOC: ERS 14:31
DX: R51 Headache (principal)
CPT/HCPCS: 80053; 82570; 84156; 85025; 96361; 96374; 96375; J1200; J2765

== ENCOUNTER 2020-06-12 16:42 | Emergency (ER) | payer OTHER ==
[2020-06-13 10:51] LABS: SARS-CoV-2 MS2 Positive; SARS-CoV-2 N Gene Positive; SARS-CoV-2 S Gene Positive; SARS-CoV-2 by NAA DETECTED (NotDetected); SARS-CoV-2 orf1ab Positive
== END 2020-06-12 17:00 | disposition home or self-care (01) ==
LOC: ERS 16:42
DX: U07.1 COVID-19 (principal)
CPT/HCPCS: 87635; 99283; U0003

== ENCOUNTER 2020-06-28 12:13 | Emergency (ER) | payer OTHER ==
[2020-06-29 15:12] LABS: SARS-CoV-2 MS2 Positive; SARS-CoV-2 N Gene Positive; SARS-CoV-2 S Gene Positive; SARS-CoV-2 by NAA DETECTED (NotDetected); SARS-CoV-2 orf1ab Positive
== END 2020-06-28 12:40 | disposition home or self-care (01) ==
LOC: ERS 12:13
DX: U07.1 COVID-19 (principal)
CPT/HCPCS: 87635; 99283; U0003

== ENCOUNTER 2021-03-28 17:19 | Emergency (ER) | payer OTHER ==
[2021-03-29 12:12] LABS: SARS-CoV-2 PCR by NAA Not Detected (NotDetected)
== END 2021-03-28 18:50 | disposition home or self-care (01) ==
LOC: ERS 17:19
DX: B34.9 Viral infection, unspecified (principal); Z20.822 Contact with and (suspected) exposure to COVID-19
CPT/HCPCS: 99283; U0003; U0005

== ENCOUNTER 2022-10-08 07:48 | Outpatient (CLI) | payer OTHER | END 2022-10-08 07:49 | disposition home or self-care (01) | LOC: BICULT 07:48 | PROVIDERS: ATTEND Advanced Practice Midwife | DX: Z34.92 Encounter for supervision of normal pregnancy, unspecified, second trimester (principal); Z3A.20 20 weeks gestation of pregnancy | CPT/HCPCS: 76805 ==

== ENCOUNTER 2022-12-05 09:11 | Outpatient (CLI) | payer OTHER | END 2022-12-05 09:12 | disposition home or self-care (01) | LOC: BICULT 09:11 | PROVIDERS: ATTEND Family Medicine | DX: O09.893 Supervision of other high risk pregnancies, third trimester (principal); Z3A.28 28 weeks gestation of pregnancy | CPT/HCPCS: 76805 ==